=== PATIENT | female | born 1950 | race Caucasian/White ===

== ENCOUNTER 2020-03-23 20:15 | Inpatient (IN) | payer MEDICARE, BC ==
[~2020-03-23] VITALS: Ht 180.3 cm; Wt 54.4 kg
[2020-03-23] MEDS ORDERED: QUET400T PO (20:33)
[2020-03-23] MEDS ORDERED: AMLO5TAB9 PO (20:33)
[2020-03-23] MEDS ORDERED: LORA-259 PO ×2 (20:33)
[2020-03-23] MEDS ORDERED: LITH150C PO (20:33)
[2020-03-23] MEDS ORDERED: CARB200T PO (20:33)
[2020-03-23] MEDS ORDERED: DEXL60CA3 PO (20:33)
[2020-03-23] MEDS ORDERED: CHOL400T11 PO (20:33)
[2020-03-23 20:49] LABS: BASOPHILS % (AUTO) 0.5 % (0.0-2.0); EOSINOPHILS % (AUTO) 0.1 % (0.0-6.0); HEMATOCRIT 39 % (33-45); HEMOGLOBIN 13.1 g/dL (11.5-14.8); LYMPHOCYTES # (AUTO) 1.3 /CMM (0.8-4.8); LYMPHOCYTES % (AUTO) 12.9 % (20.0-44.0); MEAN CORPUSCULAR HGB CONC 34 g/dl (31.0-36.0); MEAN CORPUSCULAR VOLUME 96 fL (82-100); MONOCYTES # (AUTO) 0.7 /CMM (0.1-1.30); MONOCYTES % (AUTO) 6.7 % (2.0-12.0); NEUTROPHILS # (AUTO) 7.9 /CMM (1.8-8.9); NEUTROPHILS % (AUTO) 79.8 % (43.0-81.0); PLATELET COUNT (AUTO) 410 /CMM (150-450); RED BLOOD CELL COUNT(AUTO) 4.04 MIL/uL (4.0-5.2); WHITE BLOOD COUNT (AUTO) 9.8 K/uL (4.3-11.0)
[2020-03-23 20:56] LABS: APPEARANCE,URINE Slightly Cloudy (CLEAR); BILIRUBIN,URINE Negative (NEGATIVE); BLOOD, URINE Trace-lysed Ery/uL (NEGATIVE); COLOR,URINE Yellow (YELLOW); KETONES,URINE 15 (NEGATIVE); LEUKOCYTE ESTERASE ,URINE Large (NEGATIVE); NITRITE, URINE Negative (NEGATIVE); PH,URINE 7.5 (5.0-8.0); PROTEIN,URINE 30 mg/dl (NEGATIVE); UGLUCOSE Negative (NEGATIVE); UROBILINOGEN,URINE 0.2 EU/dL (0.2)
--- NOTE | 2020-03-23 21:00 | NUR ---
PT TRANSPORTED TO UNIT ON WHEELCHAIR WITH EMT AT BEDSIDE. PT IS STABLE FOR TRANSPORT
--- NOTE | 2020-03-23 21:01 | NUR ---
[facility] TO ER BED 12. AAOX3. NOT IN RESP DISTRESS. AMBULATORY. SENT FOR PSYCH EVAL 2ND TO ANXIETY AND AGITATION. PT NOTED ANXIOUS AEB TREMBLING. AT TIME OF RECEIVING PT TO THIS POINT, SHE HAS BEEN CALM , COOPERATIVE AND COMPLIANT. PT DENIES ANY PAIN NOR ANY MEDICAL COMPLAINT. WAS AT THE BEDSIDE FOR EVAL.
[2020-03-23 21:04] LABS: ACETAMINOPHEN 0 ug/ml (10-30); ALANINE AMINOTRANSFERASE 20 U/L (12-78); ALCOHOL, BLOOD < 3 mg/dL (0-0); ALKALINE PHOSPHATASE 121 U/L (46-116); ASPARTATE AMINOTRANSFERASE 19 U/L (15-37); BILIRUBIN,DIRECT 0.1 mg/dL (0.0-0.2); BILIRUBIN,TOTAL 0.4 mg/dL (0.2-1.0); CALCIUM, SERUM 10.7 mg/dL (8.5-10.1); CARBON DIOXIDE 27 mmol/L (21-32); CHLORIDE 96 mmol/L (98-107); CREATININE 0.8 mg/dL (0.6-1.3); GLUCOSE 147 mg/dL (74-106); SODIUM SERUM 131 mmol/L (136-145); TOTAL PROTEIN, SERUM 6.2 g/dL (6.4-8.2); UREA NITROGEN, BLOOD 10 mg/dL (7-18)
[2020-03-23 21:04] LABS: BACTERIA,URINE Many /HPF (None Seen); RBC,URINE 0-2 /HPF (0-2); SQUAMOUS EPITHELIAL CELL,UR Few /HPF (None Seen); WBC,URINE TOO NUMEROUS TO COUN /HPF (0-3)
[2020-03-23 21:11] LABS: SALICYLATE 1.2 mg/dL (2.8-20.0)
[2020-03-23] MEDS ORDERED: CEPHALEXIN MONOHYDRATE 250 MG CAPSULE PO STA (21:31)
[2020-03-23] MEDS ORDERED: POTASSIUM CHLORIDE 20 MEQ TAB.PRT.SR PO STA (21:31)
[2020-03-23] MEDS ORDERED: CEPHALEXIN MONOHYDRATE 500 MG CAPSULE PO ONE (21:36)
[2020-03-23] MEDS ORDERED: POTASSIUM CHLORIDE 20 MEQ TAB.PRT.SR PO ONE (21:37)
--- NOTE | 2020-03-23 21:47 | NUR ---
REPORT GIVEN TO CARA LIMA FOR GENE
--- NOTE | 2020-03-23 22:00 | NUR ---
GPS NATURAL RESOURCES EXTENSION EDUCATOR NOTES: ADMITTED 70 Y/O FEMALE. PT ADMITTED FROM [facility] ER TO [facility] GPS UNIT ON A 5150. PER HOLD, PT CAME FROM [facility]. PT HAD INCREASE AGITATION AND ANXIETY. ACCORDING TO THE FACILITY PT IS DEPRESSED, SAD, CONFUSED, RESTLESS,ANXIOUS, NOT EATING WELL, POOR APPETITE, SHAKING, DEPRESSED MOOD, AND IMPAIRED JUDGEMENT. PT HAS HISTORY OF BIPOLAR DISORDER, INSOMNIA, AND ANXIETY. UPON FACE TO FACE ASSESSMENT, PT IS ALERT ORIENTATED X2, COOPERATIVE, ANXIOUS, QUIET, FLAT AFFECT, DEPRESSED,RESERVED, CONFUSED, FORGETFUL, UNKEMPT, AND GUARDED. WHEN ASKED PT THE REASON SHE IS HERE, PT STATED, " I WAS ANXIOUS". PT REFUSED TO SIGN CONSENT PAPERS DUE TO "FEELING TIRED". ENVIRONMENTAL SAFETY CHECK DONE Q15MIN. ENCOURAGE TO VERBALIZE THOUGHTS AND FEELINGS WITH STAFF. ORIENTED TO THE UNIT. NURSING ASSESSMENT DONE. BODY ASSESSMENT CHECKED W/ NOTED LEFT AND RIGHT LONG TOENAILS, ABDOMEN OLD SURGICAL SCAR, LEFT/RIGHT ARM DISCOLORATION, AND UPPER HEAD DRYNESS/ DANDRUFF. WOUND CONSULT ORDERED. PT STATES SHE DOES NOT KNOW WHAT KIND OF SURGERY SHE HAD IN HER ABDOMEN. NOTIFIED MD OF PTS ADMISSION. INITIAL BLOOD SUGAR CHECK DONE. PICTURE TAKEN OF PTS FACE. PICTURE PUT IN CHART. PROVIDED PT W/ HANDBOOK AND MED GUIDE. NO S.S OF RESP DISTRESS. BREATHING EVEN AND UNLABORED. NO S/S OF PAIN AT THIS TIME. NO SI OR HI AT THIS TIME. CONTINUE TO MONITOR.
--- NOTE | 2020-03-23 22:00 | NUR ---
PT WAS TRABNSFERRED TO GPS IN STABLE CONDITION;
[2020-03-23] MEDS ORDERED: MAGNESIUM HYDROXIDE 30 ML UDC PO PRN (22:30)
[2020-03-23] MEDS ORDERED: ACETAMINOPHEN 325 MG TABLET PO PRN (22:30)
[2020-03-23] MEDS ORDERED: BLOOD SUGAR DIAGNOSTIC 1 EACH STRIP IN ONE (22:30)
[2020-03-23] MEDS ORDERED: MAG HYDROX/AL HYDROX/SIMETH 30 ML UDC PO PRN (22:30)
[2020-03-23 22:45] VITALS: BP 154/84
[2020-03-24 07:00] LABS: CREATININE 0.9 mg/dL (0.6-1.3)
[2020-03-24 07:11] LABS: CHOLESTEROL 262 mg/dL (<200); HDL CHOLESTEROL 39 mg/dL (40-60); LDL 198 mg/dL (0-99); TRIGLYCERIDES 115 mg/dL (30-150)
[2020-03-24 08:00] VITALS: BP 136/88
[2020-03-24] MEDS ORDERED: ACET-2605 PO (08:13)
[2020-03-24] MEDS ORDERED: ONDA4TAB5 PO (08:13)
[2020-03-24] MEDS ORDERED: POLY17PO4 PO (08:13)
--- NOTE | 2020-03-24 08:28 | NUR ---
Dr. Olson made aware of the admission and gave order.
[2020-03-24] MEDS ORDERED: LORAZEPAM 0.5 MG TABLET PO PRN (08:30)
[2020-03-24] MEDS: CHOLECALCIFEROL 1,000 UNIT TABLET (VIT D3) PO SCH (08:30)
[2020-03-24] MEDS: PANTOPRAZOLE 40 MG TABLET.DR PO SCH (08:30)
[2020-03-24] MEDS: AMLODIPINE BESYLATE 5 MG TABLET PO SCH (08:31)
[2020-03-24] MEDS: CEPHALEXIN MONOHYDRATE 500 MG CAPSULE PO SCH ×2 (08:31→21:00)
[2020-03-24] MEDS ORDERED: LITHIUM CARBONATE 150 MG CAPSULE PO SCH (09:00)
--- NOTE | 2020-03-24 09:30 | NUR ---
WOUND CARE CONSULT: PT PRESENTS WITH FLAKES ON HER HAIR AND SCALP. PT STATES IS UNABLE TO WASH HER HAIR BY HERSELF AND NEEDS ASSISTANCE. DISCUSSED WITH NURSING STAFF AND HAIR TO BE WASHED TODAY. WILL SEE PRN.
--- NOTE | 2020-03-24 10:39 | NUR ---
Facility Contact: CARMENZA called [facility] ([phone]) and spoke to the Web Site Project Manager, Allan. The test administrator stated that the pt can return once the MD believes that the pt is stable. He stated that the pts prescriptions will need to be faxed over to their pharmacy and that the pt will need to present a negative COVID test.
--- NOTE | 2020-03-24 11:48 | NUR ---
RN NOTES SEEN PATIENT BY ASSISTANT PROFESSOR OF MATHEMATICS JOCELINE, AND GET TO ORDER ENSURE VANILLA TID, AND CHANGE DIET TO REGULAR. ORDER TAKEN AND CARRIED OUT.
--- NOTE | 2020-03-24 11:49 | NUR ---
Initial Discharge Plan: Pt currently resides at [facility] located at [address] [place] [id number]; ([phone]). Per pt, she would like to return once she is stable. CARMENZA will work with the pt and the MD regarding appropriate discharge planning. SW will form a safe and proper plan.
[2020-03-24] MEDS: ENSURE ENLIVE 237 ML LIQUID (VANILLA) PO SCH ×2 (13:00→16:49)
[2020-03-24] MEDS ORDERED: MISCELLANEOUS MED 1 EA EA XX ONE (14:00)
--- NOTE | 2020-03-24 14:08 | NUR ---
Group Note: SW encouraged the pt to participate in group therapy on 03/24/20, but the pt stated that she wanted to remain in her bed and that she feels too anxious as today is her first day to take part in group therapy. Pt stated that she was feeling really tired and wanted to be left alone.
[2020-03-24] MEDS: LITHIUM CARBONATE 150 MG CAPSULE PO SCH ×2 (15:47→21:00)
[2020-03-24 16:00] VITALS: BP 125/79
[2020-03-24] MEDS ORDERED: KETOCONAZOLE SHAMPOO 120 ML BOTTLE TP ONE (16:00)
[2020-03-24] MEDS: CARBAMAZEPINE 100 MG TAB.CHEW PO SCH (16:49)
[2020-03-24] MEDS ORDERED: ONDANSETRON HCL 4 MG/5 ML SOLUTION PO PRN (18:00)
[2020-03-24] MEDS ORDERED: ONDANSETRON 4 MG TAB.RAPDIS PO ONE (18:00)
[2020-03-24] MEDS ORDERED: ONDANSETRON 4 MG TAB.RAPDIS PO PRN (18:00)
--- NOTE | 2020-03-24 18:50 | NUR ---
rn notes collected covid -19 test from pharyngeal area , patient on r/o isolation, take specimen to the lob.
[2020-03-24 20:00] VITALS: BP 132/94
--- NOTE | 2020-03-24 20:00 | NUR ---
RN GPS NOTES PATIENT EXPRESSED SHE FEELS NAUSEA. HUSEYINFRAN OFFERED, PATIENT REFUSED. STATES " I DON'T WANT TO TAKE ANY PILLS TONIGHT". WILL CONTINUE TO MONITOR AND OFFER MEDICATIONS ORDERED.
--- NOTE | 2020-03-24 21:06 | NUR ---
RN GPS NOTES PATIENT REFUSED KEFLEX AND LITHIUM PO ORDERED, DESPITE EDUCATION PROVIDED, PATIENT STATES " SHE DOESNT WANT TO TAKE IT BECAUSE SHE FEELS NAUSEOUS". OFFERED ZOFRAN TO PATIENT AND EDUCATION PROVIDED, PATIENT ALSO REFUSED STATING " ILL PASS ON IT".
[2020-03-24] MEDS ORDERED: QUETIAPINE FUMARATE 25 MG TABLET PO SCH (22:00)
[2020-03-24] MEDS: ATORVASTATIN 40 MG TABLET PO SCH (22:00)
--- NOTE | 2020-03-24 22:13 | NUR ---
RN GPS NOTES PATIENT REFUSED SEROQUEL AND LIPITOR PO ORDERED, DESPITE EDUCATION PROVIDED, PATIENT STATES " SHE DOESNT WANT TO TAKE IT BECAUSE SHE FEELS NAUSEOUS". OFFERED ZOFRAN TO PATIENT AND EDUCATION PROVIDED AGAIN, PATIENT REFUSED ZOFRAN.
--- NOTE | 2020-03-24 22:55 | NUR ---
rn gps notes covid test done as recommended and dropped off to lab.
[2020-03-25 06:13] VITALS: BP 132/94
[2020-03-25 06:48] LABS: BASOPHILS % (AUTO) 0.2 % (0.0-2.0); EOSINOPHILS % (AUTO) 0.1 % (0.0-6.0); HEMATOCRIT 39 % (33-45); LYMPHOCYTES # (AUTO) 1.7 /CMM (0.8-4.8); LYMPHOCYTES % (AUTO) 23.5 % (20.0-44.0); MEAN CORPUSCULAR HGB CONC 34 g/dl (31.0-36.0); MEAN CORPUSCULAR VOLUME 94 fL (82-100); MONOCYTES # (AUTO) 0.9 /CMM (0.1-1.30); MONOCYTES % (AUTO) 12.1 % (2.0-12.0); NEUTROPHILS # (AUTO) 4.6 /CMM (1.8-8.9); NEUTROPHILS % (AUTO) 64.1 % (43.0-81.0); PLATELET COUNT (AUTO) 436 /CMM (150-450); RED BLOOD CELL COUNT(AUTO) 4.09 MIL/uL (4.0-5.2); WHITE BLOOD COUNT (AUTO) 7.2 K/uL (4.3-11.0)
[2020-03-25 07:06] LABS: ALBUMIN 2.9 g/dL (3.4-5.0); BILIRUBIN,TOTAL 0.4 mg/dL (0.2-1.0); CALCIUM, SERUM 10.5 mg/dL (8.5-10.1); CREATININE 0.8 mg/dL (0.6-1.3); MAGNESIUM 2.4 mg/dL (1.8-2.4)
[2020-03-25 08:00] VITALS: BP 150/83
[2020-03-25] MEDS: CARBAMAZEPINE 100 MG TAB.CHEW PO SCH ×3 (09:42→17:40)
[2020-03-25] MEDS: PANTOPRAZOLE 40 MG TABLET.DR PO SCH (09:42)
[2020-03-25] MEDS: CEPHALEXIN MONOHYDRATE 500 MG CAPSULE PO SCH ×2 (09:43→21:24)
[2020-03-25] MEDS: ENSURE ENLIVE 237 ML LIQUID (VANILLA) PO SCH ×3 (09:43→17:40)
[2020-03-25] MEDS: AMLODIPINE BESYLATE 5 MG TABLET PO SCH (09:43)
[2020-03-25] MEDS: LITHIUM CARBONATE 150 MG CAPSULE PO SCH ×2 (09:43→21:24)
[2020-03-25] MEDS: CHOLECALCIFEROL 1,000 UNIT TABLET (VIT D3) PO SCH (09:43)
--- NOTE | 2020-03-25 10:24 | NUR ---
RN-CO: CLARIFIED WITH DR MARTINEZ THE REASON WHY COVID TEST WAS ORDERED. SAID THAT SHE HAS PLAN TO DISCHARGE PATIENT ON SATURDAY AND SNF MIGHT REQUIRE IT FOR PLACEMENT.
[2020-03-25] MEDS ORDERED: POTASSIUM CHLORIDE 20 MEQ TAB.PRT.SR PO SCH (11:00)
[2020-03-25] MEDS ORDERED: POTASSIUM CHLORIDE 20 MEQ TAB.PRT.SR PO ONE (12:00)
[2020-03-25] MEDS: risperiDONE 0.25 MG TABLET PO SCH ×2 (12:57→17:40)
[2020-03-25 16:00] VITALS: BP 115/72
[2020-03-25 20:00] VITALS: BP 123/78
[2020-03-25] MEDS: QUETIAPINE FUMARATE 25 MG TABLET PO SCH (21:24)
[2020-03-25] MEDS: ATORVASTATIN 40 MG TABLET PO SCH (21:24)
[2020-03-26 08:00] VITALS: BP 122/74
[2020-03-26] MEDS: ENSURE ENLIVE 237 ML LIQUID (VANILLA) PO SCH ×3 (08:42→16:18)
[2020-03-26] MEDS: risperiDONE 0.25 MG TABLET PO SCH ×2 (08:44→16:17)
[2020-03-26] MEDS: AMLODIPINE BESYLATE 5 MG TABLET PO SCH (08:44)
[2020-03-26] MEDS: LITHIUM CARBONATE 150 MG CAPSULE PO SCH ×2 (08:44→21:36)
[2020-03-26] MEDS: CHOLECALCIFEROL 1,000 UNIT TABLET (VIT D3) PO SCH (08:44)
[2020-03-26] MEDS: CEPHALEXIN MONOHYDRATE 500 MG CAPSULE PO SCH ×2 (08:44→21:35)
[2020-03-26] MEDS: PANTOPRAZOLE 40 MG TABLET.DR PO SCH (08:44)
[2020-03-26] MEDS: CARBAMAZEPINE 100 MG TAB.CHEW PO SCH ×3 (08:44→16:17)
[2020-03-26 16:00] VITALS: BP 113/70
[2020-03-26 20:33] VITALS: BP 122/72
[2020-03-26] MEDS: ATORVASTATIN 40 MG TABLET PO SCH (21:35)
[2020-03-26] MEDS: QUETIAPINE FUMARATE 25 MG TABLET PO SCH (21:35)
[2020-03-27 08:00] VITALS: BP 141/91
[2020-03-27] MEDS: CARBAMAZEPINE 100 MG TAB.CHEW PO SCH ×3 (08:46→16:34)
[2020-03-27] MEDS: PANTOPRAZOLE 40 MG TABLET.DR PO SCH (08:46)
[2020-03-27] MEDS: risperiDONE 0.25 MG TABLET PO SCH ×2 (08:46→16:34)
[2020-03-27] MEDS: CEPHALEXIN MONOHYDRATE 500 MG CAPSULE PO SCH ×2 (08:46→21:09)
[2020-03-27] MEDS: AMLODIPINE BESYLATE 5 MG TABLET PO SCH (08:46)
[2020-03-27] MEDS: CHOLECALCIFEROL 1,000 UNIT TABLET (VIT D3) PO SCH (08:47)
[2020-03-27] MEDS: LITHIUM CARBONATE 150 MG CAPSULE PO SCH ×2 (08:47→21:10)
[2020-03-27] MEDS: ENSURE ENLIVE 237 ML LIQUID (VANILLA) PO SCH ×3 (08:49→16:34)
[2020-03-27 16:00] VITALS: BP 117/78
[2020-03-27] MEDS: ATORVASTATIN 40 MG TABLET PO SCH (21:09)
[2020-03-27] MEDS: QUETIAPINE FUMARATE 25 MG TABLET PO SCH (21:10)
[2020-03-27 21:20] VITALS: BP 155/92
[2020-03-27] MEDS: TEMAZEPAM 7.5 MG CAPSULE PO PRN (21:43)
[2020-03-28 08:00] VITALS: BP 150/90
[2020-03-28] MEDS: CEPHALEXIN MONOHYDRATE 500 MG CAPSULE PO SCH ×2 (08:12→21:43)
[2020-03-28] MEDS: CARBAMAZEPINE 100 MG TAB.CHEW PO SCH ×3 (08:12→17:32)
[2020-03-28] MEDS: LITHIUM CARBONATE 150 MG CAPSULE PO SCH ×2 (08:12→21:43)
[2020-03-28] MEDS: PANTOPRAZOLE 40 MG TABLET.DR PO SCH (08:12)
[2020-03-28] MEDS: risperiDONE 0.25 MG TABLET PO SCH ×2 (08:13→17:32)
[2020-03-28] MEDS: AMLODIPINE BESYLATE 5 MG TABLET PO SCH (08:13)
[2020-03-28] MEDS: CHOLECALCIFEROL 1,000 UNIT TABLET (VIT D3) PO SCH (08:13)
[2020-03-28] MEDS: ENSURE ENLIVE 237 ML LIQUID (VANILLA) PO SCH ×3 (08:14→17:33)
--- NOTE | 2020-03-28 09:18 | NUR ---
SNF REFERRAL: CARMENZA faxed SNF referral to Amberly campaign coordinator at [facility] ([facility]) [id number] [facility] [id number] for review.
--- NOTE | 2020-03-28 12:12 | NUR ---
SNF REFERRAL: SW received a call form Amberly incident coordinator at [facility] ([facility]) [id number] [facility] [id number] stating pt has been accepted to the facility.
--- NOTE | 2020-03-28 13:36 | NUR ---
FAMILY CONTACT: CARMENZA contacted pts brother Joel [phone] and left a voicemail informing him pt will be discharged tomorrow 03/29/20 to [facility].
--- NOTE | 2020-03-28 14:00 | NUR ---
GROUP NOTE: SW encouraged pt to attend group therapy on this present day. Pt was asleep and not easily roused by verbal cues.
[2020-03-28 16:00] VITALS: BP 140/62
--- NOTE | 2020-03-28 16:00 | NUR ---
FAMILY CONTACT: SW received a call from pts brother Joel [phone] agreeing with pts discharge to [facility]. SW provided him with facility contact number.
--- NOTE | 2020-03-28 20:07 | NUR ---
GPS-RN NOTE: ANXIETY PATIENT C/O FEELING ANXIOUS. ADMINISTERED ATIVAN 0.5MG PO ORDERED. WILL CONTINUE TO MONITOR FOR SAFETY.
[2020-03-28 20:16] VITALS: BP 160/95
[2020-03-28 21:30] VITALS: BP 141/78
[2020-03-28] MEDS: ATORVASTATIN 40 MG TABLET PO SCH (21:43)
[2020-03-28] MEDS: QUETIAPINE FUMARATE 25 MG TABLET PO SCH (21:43)
[2020-03-29] MEDS: TEMAZEPAM 7.5 MG CAPSULE PO PRN (01:32)
--- NOTE | 2020-03-29 01:32 | NUR ---
GPS-RN NOTE: INSOMNIA PATIENT C/O UNABLE TO SLEEP. ADMINISTERED RESTORIL 7.5MG PO ORDERED. WILL CONTINUE TO MONITOR.
[2020-03-29 08:00] VITALS: BP 119/68
[2020-03-29] MEDS: LITHIUM CARBONATE 150 MG CAPSULE PO SCH (08:52)
[2020-03-29] MEDS: CHOLECALCIFEROL 1,000 UNIT TABLET (VIT D3) PO SCH (08:52)
[2020-03-29 08:53] VITALS: BP 119/68
[2020-03-29] MEDS: PANTOPRAZOLE 40 MG TABLET.DR PO SCH (08:53)
[2020-03-29] MEDS: risperiDONE 0.25 MG TABLET PO SCH (08:53)
[2020-03-29] MEDS: AMLODIPINE BESYLATE 5 MG TABLET PO SCH (08:53)
[2020-03-29] MEDS: CARBAMAZEPINE 100 MG TAB.CHEW PO SCH ×2 (08:53→12:40)
[2020-03-29] MEDS: CEPHALEXIN MONOHYDRATE 500 MG CAPSULE PO SCH (08:53)
[2020-03-29] MEDS: ENSURE ENLIVE 237 ML LIQUID (VANILLA) PO SCH ×2 (09:09→12:40)
--- NOTE | 2020-03-29 09:32 | NUR ---
DISCHARGE NOTE: Pt will be discharged at 12:00pm via [facility] to [facility] ([facility]) [address] [facility] [address] . Pts brother Joel [phone] has been notified and agrees with discharge plan. Pts mood is euthymic with congruent affect. Pt denied visual/auditory hallucinations and denied suicidal/homicidal ideation. Pt will be under the care of Psychiatrist: Dr. Nano Olson [address] [facility] [address] [address] and Consumer Lender: Dr. Geradr Villa Address: [address] [facility] [address], [place] [address] . The multidisciplinary exit care form was done, printed, signed, and given to the patient. Addendum: 03/29/20 at 1247 by RED HERR Pt will be discharged at 3:00pm via [facility] to [facility] Address: [address] [place] [address] Room 5A. Pts brother Joel [phone] has been notified. Psychiatrist: Dr. Jigar Guan Address: [place] [address] and Consumer Lender: Dr. Cristina Packer Address: [address] [facility] [address] [address] .
--- NOTE | 2020-03-29 11:48 | NUR ---
FACILITY CONTACT: CARMENZA received a call from Gaudencio, telecommunications administrator at [facility] ([phone]) stating that he did not want pt discharging to [facility] and stated he will place pt at a different SNF. CARMENZA stated that he was not pts decision maker and could not interfere with pts discharge. CARMENZA also informed him that pts brother had agreed with pts discharge plan. Gaudencio stated that he would call pts brother.
--- NOTE | 2020-03-29 11:57 | NUR ---
FAMILY CONTACT: CARMENZA received a call from pts brother Joel [phone] stating that Gaudencio from [facility] called him and he now wishes for pt to be discharged to [facility], CARMENZA informed him that this should have been discussed with CARMENZA yesterday as he had already agreed with pts discharge to [facility]. CARMENZA informed him that the ambulance was already on site and pts discharge had already been completed. CARMENZA asked brother if pt had been accepted to [facility] and he stated pt had not been accepted and wanted SW to fax a referral. CARMENZA stated that discharge could not be prolonged as pt no longer meets criteria for acute psychiatric hospitalization and he had agreed with placement at [facility] yesterday when CARMENZA and spoke with him. Brother stated that he is next of kin and CARMENZA LOVE faxed referral to [facility] Address: [address] [place] [phone] Fax:
--- NOTE | 2020-03-29 12:39 | NUR ---
SNF CONTACT: SW received a call from Estelle learning coordinator at [facility] Address: [address] [place] [phone] stating pt has been accepted to the facility.
--- NOTE | 2020-03-29 15:00 | NUR ---
GPS DISCHARGE NOTE : PATIENT DISCHARGED TODAY TO [facility] [address] [place] [address] PATIENT LEFT THE UNIT AMBULANCE TRIP # [id number] PATIENT IS IN STABLE CONDITION. VSS. NO ACUTE DISTRESS NOTED. NO COMPLAINTS. COMPLIANT WITH MEDICATION MANAGEMENT. COOPERATIVE WITH PLAN OF CARE. PSYCHIATRIC TREATMENT PLANS MET. MEDICAL TREATMENT PLANS DEFERRED FOR CONTINUAL MONITORING. DENIES SI/HI/VAH AT THE TIME OF DISCHARGE. PATIENT REFUSED SKIN ASSESSMENT AND PICTURES TO BE TAKEN. MEDICATIONS RECONCILED WITH ALONG WITH PSYCHIATRIC DISCHARGE ORDERS. DISCHARGE PAPERWORK SIGNED. FOR FOLLOW UP WITH PSYCHIATRIST AND INSTALLATION AND SERVICE TECHNICIAN.REPORT GIVEN TO FACILITY GROUP EXERCISE INSTRUCTOR.
== END 2020-03-29 14:45 | DRG 885 ==
LOC: ER 20:15 → GPS 21:25
PROVIDERS: ADMIT Psychiatry & Neurology Psychosomatic Medicine; ATTEND Nurse Practitioner Acute Care
DX: F31.64 Bipolar disorder, current episode mixed, severe, with psychotic features (principal); F01.50 Vascular dementia, unspecified severity, without behavioral disturbance, psychotic disturbance, mood disturbance, and anxiety; F23 Brief psychotic disorder; N39.0 Urinary tract infection, site not specified; E87.1 Hypo-osmolality and hyponatremia; F41.9 Anxiety disorder, unspecified; I10 Essential (primary) hypertension; K21.9 Gastro-esophageal reflux disease without esophagitis; B96.89 Other specified bacterial agents as the cause of diseases classified elsewhere; E87.6 Hypokalemia; R73.9 Hyperglycemia, unspecified
CPT/HCPCS: 36415; 80048-TC; 80053-TC; 80061-TC; 80076-TC; 80305; 81000-TC; 82565-TC; 82962-TC; 83735-TC; 85025-TC; 87081-TC; 97116-TC; 97530-TC; G0480; Q0162; U0003-CS